=== PATIENT | female | born 1960 | race Caucasian/White ===

== ENCOUNTER → 2018-10-05 | Outpatient (CLI) | payer OTHER ==
[2018-10-05 15:09] LABS: ALBUMIN 4.7 GM/DL (3.2-5.2); ALBUMIN/GLOBULIN RATIO 1.38 (1.00-1.93); ALKALINE PHOSPHATASE 74 U/L (45-117); ALT/SGPT 14 U/L (12-78); ANION GAP 6 MEQ/L (8-16); AST/SGOT 7 U/L (7-37); BILIRUBIN,TOTAL 0.3 MG/DL (0.2-1.0); BLOOD UREA NITROGEN 14 MG/DL (7-18); CALCIUM LEVEL 9.3 MG/DL (8.5-10.1); CARBON DIOXIDE LEVEL 26 MEQ/L (21-32); CHLORIDE LEVEL 107 MEQ/L (98-107); GLOMERULAR FILTRATION RATE > 60.0 (>51); GLUCOSE, FASTING 96 MG/DL (70-100); RHEUMATOID FACTOR QUANT < 10.0 IU/ML (<15.0); SODIUM LEVEL 139 MEQ/L (136-145); TOTAL PROTEIN 8.1 GM/DL (6.4-8.2)
[2018-10-05 15:10] LABS: BASO # 0.1 10^3/uL (0.0-0.2); BASO % 0.7 % (0.0-1.0); EOS # 0.4 10^3/uL (0.0-0.50); EOS % 5.1 % (0.0-3.0); HEMATOCRIT 37.6 % (36.0-47.0); HEMOGLOBIN 12.3 g/dl (12.0-15.5); IMMATURE GRANULOCYTE % 0.3 % (0-3.0); LYMPH # 2.1 10^3/uL (1.5-4.5); LYMPH % 29.6 % (24.0-44.0); MEAN CORPUSCULAR HEMOGLOBIN 30.4 pg (27.0-33.0); MEAN CORPUSCULAR HGB CONC 32.7 g/dl (32.0-36.5); MEAN CORPUSCULAR VOLUME 93.1 fl (80.0-96.0); MONO # 0.4 10^3/uL (0.0-0.8); MONO % 5.1 % (0.0-5.0); NEUTROPHILS # 4.2 10^3/uL (1.8-7.7); NEUTROPHILS % 59.2 % (36.0-66.0); PLATELET COUNT, AUTOMATED 278 10^3/uL (150-450); RED BLOOD COUNT 4.04 10^6/uL (4.00-5.40); RED CELL DISTRIBUTION WIDTH 13.2 % (11.5-14.5)
[2018-10-05 15:12] LABS: VITAMIN B12 LEVEL 336 PG/ML (247-911)
[2018-10-05 15:14] LABS: FOLATE 11.2 NG/ML (>5.4)
[2018-10-05 15:36] LABS: ERYTHROCYTE SEDIMENTATION RATE 8 mm/hr (0-30)
[2018-10-06 14:14] LABS: ALBUMIN 5.16 GM/DL (3.29-5.55); ALBUMIN % 63.7 % (55.8-66.1); ALPHA-1-GLOBULIN % 2.7 % (2.9-4.9); ALPHA-1-GLOBULINS 0.22 GM/DL (0.17-0.41); ALPHA-2-GLOBULINS 0.76 GM/DL (0.42-0.99); ALPHA-2-GLOBULINS % 9.4 % (7.1-11.8); BETA-1-GLOBULINS 0.44 GM/DL (0.28-0.60); BETA-1-GLOBULINS % 5.4 % (4.7-7.2); BETA-2-GLOBULINS 0.41 GM/DL (0.19-0.55); GAMMA GLOBULIN % 13.8 % (11.1-18.8); GAMMA GLOBULINS 1.12 GM/DL (0.65-1.58)
[2018-10-10 00:08] LABS: ANCA-ATYPICAL <1:20 titer (Neg:<1:20); ANTI DOUBLE STRAND-DNA AB 1 IU/mL (0-9); ANTINUCLEAR ANTIBODIES DIRECT Positive (Negative); CYTOPLASMIC NEUTROP AB ANCA-C <1:20 titer (Neg:<1:20); PERINUCLEAR AB ANCA-P <1:20 titer (Neg:<1:20); RNP ANTIBODIES 3.6 AI (0.0-0.9); SJOGREN'S ANTI SS-A 0.5 AI (0.0-0.9); SJOGREN'S ANTI SS-B <0.2 AI (0.0-0.9); SMITH ANTIBODIES <0.2 AI (0.0-0.9); VITAMIN B1 LEVEL WHOLE BLOOD 121.5 nmol/L (66.5-200.0); VITAMIN B6,PYRIDOXAL PHOSPHATE 7.8 ug/L (2.0-32.8)
== END ==
LOC: M SMT 11:52
DX: G31.84 Mild cognitive impairment of uncertain or unknown etiology (principal)
CPT/HCPCS: 82746

== ENCOUNTER → 2018-10-05 | Outpatient (REF) | LOC: M SMT 12:01 | DX: Z00.00 Encounter for general adult medical examination without abnormal findings (principal) ==

== ENCOUNTER → 2018-10-28 | Outpatient (REF) | payer OTHER ==
[2018-11-01 11:44] LABS: DRVV SCREEN 43.5 SEC
[2018-11-01 11:48] LABS: PTT LUPUS TYPE ANTICOAG SCREEN 1.1 (0-1.2)
[2018-11-05 14:14] LABS: VITAMIN E(GAMMA TOCOPHEROL) 2.2 mg/L (0.5-5.5)
== END ==
LOC: M LABSMT 16:50
DX: F09 Unspecified mental disorder due to known physiological condition (principal)

== ENCOUNTER → 2018-11-08 | Outpatient (REF) ==
--- NOTE | 2018-11-09 04:25 | REP ---
Clinical: Bilateral knee pain. Technique: AP, lateral, bilateral oblique, and sunrise views of the right knee. Findings: Generalized age-related changes are appreciated including subtle tibiofemoral joint space narrowing and mild cortical irregularity along the lateral femoral condyle. No further overt arthritic changes are appreciated. No acute fracture dislocation. No effusion. Impression: Generalized age-related changes. Electronically Signed by Valdemar Marshall MD 11/09/2018 04:16 A
== END ==
LOC: M SMT 10:26
PROVIDERS: ATTEND Internal Medicine
DX: Z02.71 Encounter for disability determination (principal)

== ENCOUNTER → 2019-07-26 | Outpatient (REF) | LOC: M LAB REF 14:00 | PROVIDERS: ATTEND Physician Assistant | DX: Z00.00 Encounter for general adult medical examination without abnormal findings (principal) ==